=== PATIENT | female | born 1955 | race Caucasian/White ===

== ENCOUNTER → 2018-03-09 | Outpatient (CLI) | payer BC ==
--- NOTE | 2018-03-09 16:31 | Diagnostic Imaging Report ---
#[id number] - USBRECOMRT ULTRASOUND OF THE RIGHT BREAST : 03/09/2018 Comparison is made to exams dated: 03/09/2018 mammogram and 09/14/2015 mammogram - [facility]. Color flow and real-time ultrasound were performed on the entire right breast with scanning in all four quadrants, retroareolar region and the right axilla. At the 2-3 o'clock position there is a heterogenous irregular spiculated shadowing mass measuring 1.3 x 1.3 x 1.2 cm. This mass corresponds with the palpable abnormality. Multiple lymph nodes in the right axilla have a normal pattern but are prominent. The nipple is inverted. IMPRESSION: HIGHLY SUGGESTIVE OF MALIGNANCY Shadowing mass in the right breast with associated nipple inversion is highly suspicious for malignancy. A biopsy is recommended. A phone call was made to the physician's office. Jl Alcant[place] Jr., D.O. cw/:03/09/2018 16:16:58 Sales Development Representative: WINNIE PERAZA, [facility] letter sent: Biopsy Required Ultrasound BI-RADS: 5 Highly suggestive of malignancy
--- NOTE | 2018-03-09 16:31 | Diagnostic Imaging Report ---
#[id number] - MGDXBIL #BILATERAL DIGITAL DIAGNOSTIC MAMMOGRAM WITH CAD: 03/09/2018 Comparison is made to exams dated: 09/14/2015 mammogram and 09/20/2011 mammogram - [facility]. Current study contains 6 films. There are scattered fibroglandular elements in both breasts. Current study was also evaluated with a Computer Aided Detection (CAD) system. There is a 1.9 cm mass with a spiculated margin in the right breast at 2 o'clock middle depth. Associated with this is nipple inversion and a large calcification that has been retracted. There are scattered benign calcifications present in both breasts. A small nodule in the left breast is stable and likely a cyst. No other significant masses, calcifications, or other findings are seen in either breast. IMPRESSION: HIGHLY SUGGESTIVE OF MALIGNANCY The 1.9 cm mass in the right breast is highly suggestive of malignancy. A biopsy is recommended. Follow-up with ACR/ACS guidelines. A phone call was made to the physician's office and the case discussed with the Doctor's nurse, Lashay. The patient and her was notified of these findings. Jl [place] Jr. Meng cw/:03/09/2018 16:10:39 Analog Device Designer: Anali SIMMONS)(Kev), [facility] letter sent: Biopsy Required Mammogram BI-RADS: 5 Highly suggestive of malignancy
== END ==
LOC: MAMMO 13:26
PROVIDERS: ATTEND Obstetrics & Gynecology
DX: N64.59 Other signs and symptoms in breast (principal)
CPT/HCPCS: 77066